=== PATIENT | male | born 1980 | race Caucasian/White ===

== ENCOUNTER 2020-03-29 11:02 | Day surgery (SDC) | payer MEDICAID, SELFPAY ==
[2020-03-22 10:21] VITALS: BMI 34.9
--- NOTE | 2020-03-22 13:17 | HO.ANESPROP2 ---
HPI - Anesthesia Eval Consult details Narrative: 40yo M for EGD [facility] Past Medical History Medical History Back pain GERD (gastroesophageal reflux disease) History of hepatitis B Hx of chronic sinusitis Snores Surgical History Surgical History History of repair of cleft lip Social History Social History Smoking Status: Former smoker Meds Allergies Allergy/AdvReac Type Severity Reaction Status Date / Time aspirin Allergy Unknown Unknown Verified 03/22/20 10:15 Home Medications Medication Instructions Recorded Confirmed Type cyclobenzaprine 10 mg PO TID PRN 03/22/20 03/22/20 History fluticasone propionate [Flonase] 1 spray INTRANASAL DAILY 03/22/20 03/22/20 History meloxicam 7.5 mg PO DAILY 03/22/20 03/22/20 History omeprazole 20 mg PO DAILY 03/22/20 03/22/20 History Exam Exam Date and Time: March 22, 2020 1317 Height,Weight and Vital Signs: Height 5 ft 8 in Weight 104.326 kg Assessment and Plan Assessment Anesthesia Assessment: Chart Reviewed
--- NOTE | 2020-03-29 10:19 | P.HPSUR_ITS ---
Pre-Procedural Eval Section B Chief Complaint: Screening,Gerd Relevant Social History: Tobacco Use Present Medications: see Short Stay Collaborative assessment Medical History: Significant History (gerd) History of Previous Operations: Relevant previous surgery/procedure and date(s) (cleft lip repair) Allergies: Allergies Allergy/AdvReac Type Severity Reaction Status Date / Time aspirin Allergy Unknown Unknown Verified 03/22/20 10:15 Review of Systems Sugical H&P ROS: Negative: Constitution, Cardiovascular, Respiratory, Neurological, Psychiatric, Hem-Onc, Allergic/Immunologic, Gastrointestinal, Genitourinary, Musculoskeletal, Integumentary, Endocrine and Eyes/Ears/Nose/Throat Exam Surgical H&P Exam: Normal: HEENT, Normal: Heart, Normal: Lungs, Normal: Extr emities, Normal: Abdomen, Normal: Skin and Normal: Neurological Plan Diagnosis/Plan: Unchanged Patient has been examined and remains a candidate for the planned procedure
[2020-03-29 11:07] VITALS: BP 132/74; PULSE 90; RESP 16; TEMP 36.1; O2SAT 99
--- NOTE | 2020-03-29 11:30 | HO.ANESPROP2 ---
[facility] Past Medical History Medical History Back pain GERD (gastroesophageal reflux disease) History of hepatitis B Hx of chronic sinusitis Snores Surgical History Surgical History History of repair of cleft lip Social History Social History Smoking Status: Former smoker Smoking Quit Date: 1 yr ago Advance Directives: No Advance Directives Information Provided: Yes Meds Allergies Allergy/AdvReac Type Severity Reaction Status Date / Time aspirin Allergy Unknown Unknown Verified 03/22/20 10:15 Home Medications Medication Instructions Recorded Confirmed Type cyclobenzaprine 10 mg PO TID PRN 03/22/20 03/22/20 History fluticasone propionate [Flonase] 1 spray INTRANASAL DAILY 03/22/20 03/22/20 History meloxicam 7.5 mg PO DAILY 03/22/20 03/22/20 History omeprazole 20 mg PO DAILY 03/22/20 03/22/20 History Exam Exam Date and Time: March 29, 2020 1130 Height,Weight and Vital Signs: Height 5 ft 8 in Weight 104.326 kg Last Vital Signs Temp 97 F 03/29/20 11:07 Pulse 90 03/29/20 11:07 Resp 16 03/29/20 11:07 BP 132/74 03/29/20 11:07 Pulse Ox 99 03/29/20 11:07 Airway Mallampati Class: IV TM Dist: >3cm Neck ROM: Full Loose/Missing/Broken Teeth: Yes Heart: RRR Assessment and Plan Assessment Anesthesia Assessment: Anesthesia Plan Discussed Final Anesthetic Review NPO: Yes Final Preanesthetic Review: Consent Obtained/Reviewed Anesthetic Plan Anesthetic Plan: MAC:
--- NOTE | 2020-03-29 11:40 | PM.OP ---
Brief Operative Note Date of procedure: 03/29/20 Pre-op diagnosis: GERD Post-op diagnosis: same Procedure: Procedure Description: EGD FLEXIBLE TRANSORAL UPPER GASTROINTESTINAL ENDOSCOPY UPPER ENDOSCOPY Consent: Indications for the procedure and potential complications of bleeding, perforation, reaction to medications and missed diagnosis were discussed with the patient and informed consent was obtained. Instrument: Olympus GIF H 190 J mid size upper endoscope Monitoring: Vital signs and clinical assessment, continuous EKG monitoring, Pulse oximetry, Carbon Dioxide monitoring and blood pressure monitoring were done throughout the procedure. Procedure: The patient was placed in the left lateral decubitis position and pre-procedure medications were administered and a bite block was placed. The endoscope was inserted into the mouth and advanced under direct vision to the third part of duodenum. A careful inspection was made as the upper endoscope was withdrawn including a retroflexed examination of the proximal stomach; Findings and interventions are described below. Findings: Larynx:normal Esophagus: GE junction at 38 cm, diaphragm hiatus at 40 cm, LA grade C erosive esophagitis with non obstructive schatzki ring. 2 cm sliding hiatal hernia noted Stomach: Patchy gastric erythema. Biopsies were obtained. Grade 2 flap valve on retroflexed examination of the cardia. Duodenum: bulbar duodenitis, bx taken Intervention: Biopsies as noted above Impression/Findings: erosive esophagitis gastritis schatzki ring duodenitis hiatal hernia PLAN: reflux precautions make sure compliant with medication, if h pylori pos then treat treat with high dose PPI and can titrate down after repeat EGD in 3-6 months Surgeon: Fuad Worley MD Anesthesia: MAC Condition: stable Disposition: PACU
[2020-03-29 11:57] VITALS: BP 145/84; PULSE 90; RESP 18; TEMP 37.1; O2SAT 98
[2020-03-29] MEDS: ondansetron HCL 4 MG/2 ML VIAL IVPUSH (12:05)
[2020-03-29 12:13] VITALS: BP 131/85; PULSE 79; RESP 14; O2SAT 97
[2020-03-29 12:28] VITALS: BP 131/81; PULSE 78; RESP 14; TEMP 37.1; O2SAT 97
[2020-03-29 12:44] VITALS: BP 138/86; PULSE 80; RESP 12; TEMP 37.1; O2SAT 98
--- NOTE | 2020-03-29 13:38 | HO.POSTANES ---
Post Anesthesia Evaluation Post Anesthesia Evaluation Vital Signs: Vital Signs Temp Pulse Resp BP Pulse Ox 03/29/20 12:44 98.7 F 80 12 138/86 98 03/29/20 12:28 98.7 F 78 14 131/81 97 03/29/20 12:13 79 14 131/85 97 03/29/20 11:57 98.7 F 90 18 145/84 H 98 03/29/20 11:07 97 F 90 16 132/74 99 Anesthesia: Monitored Mental Status: Awake Pain Control: Satisfactory Nausea/Vomiting: None Hydration: Adequate Anesthesia-Related Issues: No Anes. Related Issues
== END 2020-03-29 13:40 | disposition home or self-care (01) ==
PROVIDERS: PCP Family Medicine; Visit Provider Internal Medicine Gastroenterology
PROC: 0DJ08ZZ Inspection of Upper Intestinal Tract, Via Natural or Artificial Opening Endoscopic (ICD-10-PCS; CPT 43235; principal; 2020-03-29 11:00)
DX: K21.00 Gastro-esophageal reflux disease with esophagitis, without bleeding (principal); K29.50 Unspecified chronic gastritis without bleeding; K22.10 Ulcer of esophagus without bleeding; K44.9 Diaphragmatic hernia without obstruction or gangrene; K22.2 Esophageal obstruction; K29.80 Duodenitis without bleeding; Z79.899 Other long term (current) drug therapy; Z88.8 Allergy status to other drugs, medicaments and biological substances
CPT/HCPCS: 43239; 88305; 88342; J2405

== ENCOUNTER → 2020-06-07 11:11 | Outpatient (BNVA) | payer MEDICAID, SELFPAY | PROVIDERS: PCP Family Medicine; Visit Provider Orthopaedic Surgery | DX: M77.12 Lateral epicondylitis, left elbow (principal); M25.512 Pain in left shoulder | CPT/HCPCS: 20551; 99202; J1100 ==

== ENCOUNTER 2020-07-04 14:58 | Outpatient (REF) | payer MEDICAID, SELFPAY | END 2020-07-04 14:59 | disposition home or self-care (01) | LOC: HO.HOSX 14:58 | PROVIDERS: Visit Provider Orthopaedic Surgery | DX: Z13.89 Encounter for screening for other disorder (principal) ==

== ENCOUNTER 2020-12-28 13:59 | Outpatient (REF) | payer SELFPAY ==
--- NOTE | ~2020-12-28 | US_ITS ---
EXAMINATION: ULTRASOUND EXTREMITY NONVASCULAR CLINICAL INFORMATION: Left upper thigh pain COMPARISON: None TECHNIQUE: Grayscale and color imaging of the soft tissues of the left lateral upper thigh using a linear transducer. FINDINGS: No soft tissue mass is seen. No fluid collection is seen. US/US extremity nonvascular IMPRESSION: No abnormality seen by ultrasound.
== END 2020-12-28 14:00 | disposition home or self-care (01) ==
LOC: HO.US 13:59
PROVIDERS: PCP Internal Medicine; Referring Provider Internal Medicine; Visit Provider Emergency Medicine
DX: M79.652 Pain in left thigh (principal); S76.312A Strain of muscle, fascia and tendon of the posterior muscle group at thigh level, left thigh, initial encounter
CPT/HCPCS: 76882

== ENCOUNTER → 2025-02-07 14:57 | Outpatient (BNV) | payer OTHER, SELFPAY | PROVIDERS: Visit Provider Radiology Diagnostic Radiology | DX: N20.0 Calculus of kidney (principal); M54.50 Low back pain, unspecified | CPT/HCPCS: 72100; 74176 ==

== ENCOUNTER 2025-02-07 15:09 | Emergency (ER) | payer OTHER, SELFPAY ==
--- OUTSIDE RECORDS SUMMARY | 2025-02-02 19:00 | XMS_ITS | Encounter Summary ---
Author Organization [employer] Address [address] [place] [address] Care Team Providers Care Thermoforming Operator Name Role Phone Alma Simon MD Primary Care Provider + Reason for Visit * Reason Comments Back Pain Encounter Details Date Type Department Care Team ([facility] st Contact Info) Description 02/02/2025 7:00 PM EDT Office Visit [facility] [address], [place] [id number] Marlyn Kurtz NP [address] [place] [address] Acute bilateral low back pain, unspecified whether sciatica present (Primary Dx); Pain in testicle, unspecified laterality; Elevated blood pressure reading Social History Tobacco Use Types Packs/Day Years Used Date Smoking Tobacco: Never Assessed Sex and Gender Information Value Date Recorded Sex Assigned at Male 04/15/2022 10:30 AM EDT Legal Sex Male 10:30 AM EDT Gender Identity Male 04/15/2022 10:30 AM EDT Sexual Orientation Straight 04/15/2022 10 :30 AM EDT documented as of this encounter Last Filed Vital Signs Vital Sign Reading Time Taken Comments Blood Pressure 148/85 02/02/2025 6:55 PM EDT Pulse 78 02/02/2025 6:55 PM EDT Temperature 36.6 C (97.8 F) 02/02/2025 6:55 PM EDT Respiratory Rate 20 02/02/2025 6:55 PM EDT Oxygen Saturation - - Inhaled Oxygen Concentration - - Weight 112 kg (247 lb 3.2 oz) 02/02/2025 6:55 PM EDT Height 179.4 cm (5' 10.63 ) 02/02/2025 6:55 PM E DT Body Mass Index 34.84 02/02/2025 6:55 PM EDT documented in this encounter Progress Notes * Marlyn Kurtz NP - 02/02/2025 7:00 PM EDT SUBJECTIVE: Mohinder Pereira is a 44 y.o. male who presents to the [facility] [place] for a sick visit. Denies recent illness, injury, or hospitalization. Accompanied by his HPI - Lower back pain since Friday, with swelling on the right side and pain radiating to the front anddown his legs - Pain severity rated 6-7/10 at the moment, but 10/10 at its worse - Heating pad and bengay rub provides some relief. Also tried naproxen 1g that did not help - Pain worsened by movement, twisting, bending, and getting into bed - Occasional numbness or tingling in genital area, present before and since Friday -Reports sustaining a fall 2 years ago which resulted in separation of bone in his right lumbar area -No recent trauma -Had intermittent testicular pain at baseline, but note genital paresthesia since onset of low backpain -Urine has been orange since Friday Review of Systems Constitutional: Negative. Negative for chills and fever. HENT: Negative. Negative for congestion and sore throat. Eyes: Negative for discharge. Respiratory: Negative for cough, chest tightness and shortness of breath. Cardiovascular: Negative for chest pain and palpitations. Gastrointestinal: Negative. Negative for abdominal pain, constipation, diarrhea and nausea. Genitourinary: Positive for testicular pain. Negative for difficulty urinating. Discolored urine Musculoskeletal: Positive for back pain. Negative for myalgias. Skin: Negative for rash. Neurological: Positive for numbness. Negative for dizziness, speech difficulty, light-headedness and headaches. Hematological: Negative. Psychiatric/Behavioral: Negative for behavioral problems, self-injury and suicidal ideas. The patient is not nervous/anxious. OBJECTIVE: Visit Vitals BP (!) 148/85 (BP Location: Left arm, Patient Position: Sitting, BP Cuff Size: Adult) Pulse 78 Temp 97.8 ??F (36.6 ??C) (Oral) Resp 20 Ht 5' 10.63 (1.794 m) Wt 247 lb 3.2 oz (112 kg) BMI 34.84 kg/m?? BSA 2.36 m?? Problem List[1] Physical Exam Vitals reviewed. Constitutional: General: He is not in acute distress. Appearance: Normal appearance. He is not ill-appearing. HENT: Head: Normocephalic and atraumatic. Right Ear: External ear normal. Left Ear: External ear normal. Nose: Nose normal. Eyes: General: No scleral icterus. Extraocular Movements: Extraocular movements intact. Pulmonary: Effort: Pulmonary effort is normal. No respiratory distress. Musculoskeletal: General: Normal range of motion. Cervical back: Normal range of motion. Neurological: General: No focal deficit present. Mental Status: He is alert and oriented to person, place, and time. Gait: Gait normal. Psychiatric: Mood and Affect: Mood normal. Behavior: Behavior normal. Assessment/Plan Diagnoses and all orders for this visit: Acute bilateral low back pain, unspecified whether sciatica present Comments: Lower back pain with right-sided swelling and radiation to the front, orange urine, numbness and tingling in genital area: - Possible nerve compression with associated urinary changes; concern for cauda equina medical emergency requiring immediate evaluation. - Recommended immediate transfer to emergency department for further evaluation and management. Patient opt to arrive via private car -Hospital to expect call to [facility] by Janelle DA SILVA Pain in testicle, unspecified laterality Comments: -patient reports intermittent and chronic -not discussed given emergent nature of back pain presentation Elevated blood pressure reading Comments: -likley due to acute pain -not discussed due to acute emergent presentation of back pain -has upcoming PE with PCP Follow-up with PCP as scheduled for routine health or sooner as needed Libyan Translation: Provided by [facility] staff member SARAH Bello Patient verbally consented audio recording for note generation using Chiquita merino. [1] Patient Active Problem List Diagnosis Chronic low back pain Chronic sinusitis Deviated nasal septum Duodenitis Gastritis Obesity PVCs (premature ventricular contractions) Snoring documented in this encounter Plan of Treatment Upcoming Encounters Date Type Department Care Team (Late st Contact Info) Description 03/18/2025 10:45 AM EDT Office Visit [facility] [address] [place] [address] Alma Simon MD [address] [place] [address] documented as of this encounter Visit Diagnoses Diagnosis Acute bilateral low back pain, unspecified whether sciatica present- Primary Pain in testicle, unspecified laterality Elevated blood pressure reading Elevated blood pressure reading without diagnosis of hypertension documented in this encounter Care Teams Thermoforming Operator Relationship Specialty Start Date End Date Alma Simon MD [address] [place] [address] PCP - General Family Medicine 06/30/20 documented as of this encounter
--- NOTE | ~2025-02-07 | XR_ITS ---
EXAMINATION: XR LUMBOSACRAL SPINE CLINICAL INFORMATION: lower back pain COMPARISON: None available. TECHNIQUE: Three views of the lumbosacral spine. FINDINGS: No scoliosis. Normal lordosis. Normal alignment. No fracture, compression deformity, or suspicious bone lesion. Facets are normally aligned. No significant facet arthrosis. Normal disc spaces. Subtle sclerosis noted in the periarticular SI joints right greater than left, possibly representing sacroiliitis. There is no soft tissue abnormality. XR/XR lumbar spine 2-3V IMPRESSION: 1. No acute findings of the lumbar spine. 2. Findings which could potentially represent inflammatory sacroiliitis. Electronically signed by: Scooter Sellers MD 02/07/2025 04:02 PM EDT
--- NOTE | ~2025-02-07 | CT_ITS ---
CLINICAL HISTORY: pain, ureteral stone? CT abdomen and pelvis without IV contrast. COMPARISON: None provided. FINDINGS: Partially visualized lung bases are unremarkable. Gallbladder is contracted. Hepatic steatosis. Noncontrast appearance of the spleen, pancreas and adrenal glands are unremarkable. Nonobstructing 3 mm right renal calculus. No hydronephrosis bilaterally. No ureteral calculus. Normal appendix. Mild colonic stool burden. No bowel obstruction. No mesenteric or retroperitoneal lymphadenopathy. Normal abdominal aorta. Mild thickening of the mucosa of the contracted urinary bladder. Prostate calcification present. No inguinal lymphadenopathy. Small fat containing umbilical hernia. No acute fracture or suspicious bone lesion. IMPRESSION: 1. No evidence of renal obstruction. No ureteral calculus bilaterally. 2. Nonobstructing 3 mm right renal calculus. 3. Mild thickening of the mucosa of the contracted urinary bladder may be secondary to degree of contraction or represent cystitis. Recommend correlation clinically. This document has been electronically signed by: Aman Espino MD on 02/07/2025 19:37:40
[2025-02-07 15:16] VITALS: BP 143/73; PULSE 85; RESP 18; TEMP 36.5; O2SAT 98; BMI 39.1
--- NOTE | 2025-02-07 15:51 | ED.GENADULT ---
HPI - General Adult General Chief complaint: Back Pain/Injury Stated complaint: lower back pain Time Seen by Provider: 02/07/25 18:26 Source: patient Limitations: language barrier History of Present Illness ED Provider: Flora Mcnally PA-C HPI narrative: 44-year-old male presents with multiple complaints. Patient states over the past 2 days he has developed right lower back pain. The pain migrates across the right flank into the groin region into the testicles at time and down the right lower extremity. Initially the patient had dysuria, complaining of dark colored urine. However his urinary symptoms have resolved. Denies nausea vomiting or history of kidney stones no fevers. Denies paresthesia, weakness of lower extremity, urinary retention or bowel incontinence. Denies testicular pain or swelling. No redness of the testicles, no penile discharge no risk for STD. Related Data Home Medications ?Medication ?Instructions ?Recorded ?Confirmed cyclobenzaprine 10 mg tablet 10 mg PO TID PRN Pain 03/22/20 03/22/20 fluticasone propionate 50 1 spray intranasal DAILY 03/22/20 03/22/20 mcg/actuation nasal spray,suspension meloxicam 7.5 mg tablet 7.5 mg PO DAILY 03/22/20 03/22/20 omeprazole 20 mg capsule,delayed 20 mg PO DAILY 03/22/20 03/22/20 release Previous Rx's ?Medication ?Instructions ?Recorded pantoprazole 40 mg tablet,delayed 40 mg PO BID 30 days #60 tabs 03/29/20 release sucralfate 100 mg/mL oral 10 ml PO BID #420 mL 05/26/20 suspension ketorolac 10 mg tablet 10 mg PO Q6H PRN pain #20 tabs 02/07/25 methocarbamol 750 mg tablet 1,500 mg (2 x 750 mg) PO Q8H PRN 02/07/25 pain, moderate #24 tabs methylprednisolone 4 mg tablets in 4 mg PO QAM #21 ea 02/07/25 a dose pack (Medrol (Gunnar)) Allergies Allergy/AdvReac Type Severity Reaction Status Date / Time No Known Allergies Allergy Verified 02/07/25 15:24 Review of Systems Review of Systems: Yes all other systems are reviewed and are negative Constitutional: Constitutional: Denies fatigue and Denies fever(s) Cardiovascular: Cardiovascular: Denies chest pain and Denies dyspnea Respiratory: Respiratory: Denies dyspnea Gastrointestinal: Gastrointestinal: Denies abdominal pain, Denies nausea and Denies vomiting Genitourinary: Genitourinary: Reports dysuria, Reports flank pain, Denies penile discharge, Denies scrotal swelling and Denies testicular pain Endocrine: Endocrine: Denies fatigue [facility] Past Medical History Attestation statement: The following information was validated with the patient. 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 Physical Exam ED Vital Signs: Vital Signs - 24 hr 02/07/25 15:16 02/07/25 18:21 Temperature 97.7 F 97.2 F Pulse Rate 85 80 Respiratory Rate 18 18 Blood Pressure 143/73 H 142/81 H Pulse Oximetry 98 99 Oxygen Delivery Method Room Air Room Air BMI result Body Mass Index 39.1 Const Other: Alert well-appearing Orientation/consciousness: patient oriented x3 Resp Effort & Inspection: normal respiratory effort Cardio Other: Normal peripheral perfusion General: Yes no CVA tenderness Back/Spine/Pelvis Back: no CVA tenderness Skin Other: Warm dry no rash Neuro General: patient oriented x3, gait normal, no focal motor deficits and CN's II-XI intact bilaterally Psych Other: Cooperative Course Course Course Narrative: Rapid medical examination performed in triage by Nelia Garcia PA-C. Patient is a 44 year old assigned male at presenting to the emergency department with right sided low back and dark urine. Detailed physical exam and review of systems are deferred to the drainage engineer. Labs ordered. Patient placed back in the waiting room pending room availability and results. Medications Administered Discontinued Medications Generic Name Dose Route Start Last Admin Trade Name Freq PRN Reason Stop Dose Admin Sodium Chloride 1,000 mls @ 999 mls/hr 02/07/25 18:30 02/07/25 19:39 Ns IV 02/07/25 19:30 999 mls/hr .Q1H1M FAZAL Administration Ketorolac Tromethamine 15 mg 02/07/25 18:27 02/07/25 19:38 Ketorolac Tromethamine 15 Mg/Ml Vial IVPUSH 02/07/25 18:28 15 mg ONCE ONE Administration Methocarbamol 1,500 mg 02/07/25 19:23 02/07/25 19:39 Methocarbamol 750 Mg Tablet PO 02/07/25 19:24 1,500 mg ONCE ONE Administration Prednisone 10 mg 02/07/25 19:23 02/07/25 19:39 Prednisone 10 Mg Tablet PO 02/07/25 19:24 10 mg ONCE ONE Administration Medical Decision Making Medical Decision Making [facility] Narrative: 44-year-old male presents with multiple complaints. Patient states over the past 2 days he has developed right lower back pain. The pain migrates across the right flank into the groin region into the testicles at time and down the right lower extremity. Initially the patient had dysuria, complaining of dark colored urine. However his urinary symptoms have resolved. Denies nausea vomiting or history of kidney stones no fevers. Denies paresthesia, weakness of lower extremity, urinary retention or bowel incontinence. Denies testicular pain or swelling. No redness of the testicles, no penile discharge no risk for STD. Problem: Obesity History: Per patient I have considered the following differential diagnoses: Lumbar strain, lumbar radiculopathy, cauda equina, renal colic, pyelonephritis, UTI, torsion, orchitis/epididymitis, urethritis Plan: In regard to the patient's back pain, he is having radicular symptoms without red flag signs symptoms concerning for cord compression. In addition to screening labs and a urinalysis, x-ray of the lumbar spine was obtained it is unremarkable. We will treat accordingly. In regard to patient's urinary symptoms, I am concerned for renal colic, we will be obtaining a dry scan. Giving fluid and Toradol. Thought about pyelonephritis, however the patient has no CVA tenderness, he is afebrile without nausea vomiting. He has no testicular swelling or pain to suggest torsion versus infectious etiology such as orchitis or epididymitis. He has no risk for STD and no penile discharge. And his urine is clear. No indication for scrotal ultrasound. I have independently reviewed the following tests: Labs: No leukocytosis, not anemic, no electrolyte abnormality, urine not infected X-ray lumbar spine: XR/XR lumbar spine 2-3V IMPRESSION: 1. No acute findings of the lumbar spine. 2. Findings which could potentially represent inflammatory sacroiliitis. CT abdomen and pelvis:MPRESSION: 1. No evidence of renal obstruction. No ureteral calculus bilaterally. 2. Nonobstructing 3 mm right renal calculus. 3. Mild thickening of the mucosa of the contracted urinary bladder may be secondary to degree of contraction or represent cystitis. Recommend correlation clinically. Lab Data 02/07/25 16:39 02/07/25 16:39 Labs: Lab Results 02/07/25 02/07/25 Range/Units 16:39 18:43 WBC 5.5 (4.8-10.8) X10*3/uL RBC 5.13 (4.60-5.80) X10*6/uL Hgb 15.2 (14.0-18.0) g/dl Hct 43.6 (42.0-52.0) % MCV 85.0 (80.0-98.0) fL MCH 29.6 (27.0-33.0) pg MCHC 34.9 (31.0-36.0) g/dl RDW 13.2 (11.0-16.0) % Plt Count 197 (160-400) X10*3/uL MPV 8.7 L (9.4-12.4) fL Immature Gran % (Auto) 0.4 (0.0-0.4) % Neut % (Auto) 63.7 (45-73) % Lymph % (Auto) 20.8 (20-40) % Powell % (Auto) 12.7 H (2-11) % Eos % (Auto) 2.0 (0-4) % Baso % (Auto) 0.4 (0-2) % Lymph # (Auto) 1.2 (1.2-4.9) X10*3/uL Powell # (Auto) 0.7 (0.1-1.2) X10*3/uL Eos # (Auto) 0.1 (0.0-0.4) X10*3/uL Baso # (Auto) 0.0 (0.0-0.2) X10*3/uL Abs Immat Gran (auto) 0.02 (0.00-0.03) X10*3/uL Absolute Neuts (auto) 3.5 (2.0-8.3) x10*3/uL Absolute Nucleated RBC 0.000 (0.0-0.012) X10*3/uL Nucleated RBC % (auto) 0.0 (0.0-0.2) /100WBC Sodium 141 (135-145) mmol/L Potassium 3.7 (3.3-5.1) mmol/L Chloride 106 (96-108) mmol/L Carbon Dioxide 29 (22-29) mmol/L Anion Gap 10 L (12-20) BUN 14 (9-16) mg/dL Creatinine 0.75 (0.5-1.4) mg/dL Estim Creat Clear Calc 147.6 Estimated GFR > 60 Random Glucose 108 (60-115) mg/dL Calcium 9.1 (8.4-10.2) mg/dL Total Bilirubin 0.4 (0.0-1.0) mg/dL AST 31 (5-37) U/L ALT 44 H (0-40) U/L Alkaline Phosphatase 58 (39-117) U/L Total Protein 7.0 (6.5-8.0) g/dL Albumin 4.2 (3.5-5.0) g/dL Urine Color Yellow Urine Appearance Clear Urine pH 6.5 (5.0-9.0) Ur Specific [place] >= 1.030 H (1.005-1.025) Urine Protein Negative (Neg-Trace) mg/dL Urine Glucose (UA) Negative (Negative) mg/dL Urine Ketones Trace (Negative) mg/dL Urine Blood Negative (Negative) Urine Nitrite Negative (Negative) Ur Leukocyte Esterase Negative (Negative) Discharge Plan Discharge Clinical Impression: Right lumbar radiculopathy, Sacroiliitis Patient Disposition: Home, Self-Care Instructions: Sciatica (ED), Sacroiliitis (ED) Additional Instructions: You are being treated for both sacroiliitis and sciatica. See home care instructions. You have two inflammatory processes going on at the same time. They are both managed the same. Take the steroid taper as directed this is an anti-inflammatory. Take the ketorolac as directed this is a 2nd anti-inflammatory. Use the methocarbamol as needed for further pain this is a muscle relaxant. This medication will cause drowsiness do not drive or operate machinery while taking the medication. To note you had no lab abnormalities including your urine specimen which was negative for infection. Your urine may have been dark in color if you do not drink enough water. Follow up with your primary care as needed. Prescriptions: New ketorolac 10 mg tablet 10 mg PO Q6H PRN (Reason: pain) Qty: 20 0RF Rx Instructions: maximum total duration of 5 days from all oral, intranasal, or parenteral formulations. The patient received an IV dose of Toradol here in the emergency room methocarbamol 750 mg tablet 1,500 mg PO Q8H PRN (Reason: pain, moderate) Qty: 24 0RF methylprednisolone [Medrol (Gunnar)] 4 mg tablets,dose pack 4 mg PO QAM Qty: 21 0RF Rx Instructions: Take per package instructions No Action sucralfate 100 mg/mL suspension 10 ml PO BID Qty: 420 2RF cyclobenzaprine 10 mg Tablet 10 mg PO TID PRN (Reason: Pain) meloxicam 7.5 mg Tablet 7.5 mg PO DAILY omeprazole 20 mg Capsule,Delayed Release(Dr/Ec) 20 mg PO DAILY fluticasone propionate [Flonase] 50 mcg/actuation Bowman,Suspension 1 spray INTRANASAL DAILY pantoprazole 40 mg tablet,delayed release (DR/EC) 40 mg PO BID 30 Days Qty: 60 3RF Rx Instructions: stop omeprazole Stand Alone Forms: Work/School Release Print Language: Hungarian
[2025-02-07 16:43] LABS: MANUAL DIFF FLAG NO
[2025-02-07 16:47] LABS: Hematocrit 43.6 % (42.0-52.0); Hemoglobin 15.2 g/dl (14.0-18.0); Imm Gran Abs Auto 0.02 X10*3/uL (0.00-0.03); Imm Gran Pct Auto 0.4 % (0.0-0.4); Lymphocytes Absolute Auto 1.2 X10*3/uL (1.2-4.9); Mean Corpuscular HGB Conc 34.9 g/dl (31.0-36.0); Mean Corpuscular Hemoglobin 29.6 pg (27.0-33.0); Mean Corpuscular Volume 85.0 fL (80.0-98.0); NRBC Abs Auto 0.000 X10*3/uL (0.0-0.012); NRBC Pct Auto 0.0 /100WBC (0.0-0.2); Platelet Count 197 X10*3/uL (160-400); Red Blood Count 5.13 X10*6/uL (4.60-5.80); White Blood Count 5.5 X10*3/uL (4.8-10.8)
[2025-02-07 17:01] LABS: Alanine Aminotransferase 44 U/L (0-40); Albumin Level 4.2 g/dL (3.5-5.0); Alkaline Phosphatase 58 U/L (39-117); Anion Gap 10 (12-20); Aspartate Amino Transferase 31 U/L (5-37); Blood Urea Nitrogen 14 mg/dL (9-16); Calcium 9.1 mg/dL (8.4-10.2); Carbon Dioxide 29 mmol/L (22-29); Chloride 106 mmol/L (96-108); Creatinine Clr Calc Pharmacy 147.6; Estimated Glomerular Filt Rate > 60; Potassium 3.7 mmol/L (3.3-5.1); Sodium 141 mmol/L (135-145); Total Protein 7.0 g/dL (6.5-8.0)
[2025-02-07 18:21] VITALS: BP 142/81; PULSE 80; RESP 18; TEMP 36.2; O2SAT 99
--- OUTSIDE RECORDS SUMMARY | 2025-02-07 18:27 | XMS_ITS | Encounter Summary ---
Author Organization [employer] [facility] Address [address] [place] [address] 7 [place] [address] Care Team Providers Care Reference Assistant Name Role Phone Alma Simon MD Primary Care Provider + Encounter Details Date Type Department Care Team (Latest Contact Info) Description 02/02/2025 Travel Social History Tobacco Use Types Packs/Day Years Used Date Smoking Tobacco: Never Assessed Sex and Gender Information Value Date Recorded Sex Assigned at Male 04/15/2022 10:30 AM EDT Legal Sex Male 10:30 AM EDT Gender Identity Male 04/15/2022 10:30 AM EDT Sexual Orientation Straight 04/15/2022 10 :30 AM EDT documented as of this encounter Plan of Treatment Upcoming Encounters Date Type Department Care Team (Late st Contact Info) Description 03/18/2025 10:45 AM EDT Office Visit [facility] [address] [place] [address] Alma Simon MD [address] [place] [address] documented as of this encounter Visit Diagnoses Not on filedocumented in this encounter Care Teams Reference Assistant Relationship Specialty Start Date End Date Alma Simon MD [address] [place], [place] [phone] PCP - General Family Medicine 06/30/20 documented as of this encounter
--- OUTSIDE RECORDS SUMMARY | 2025-02-07 18:27 | XMS_ITS | Encounter Summary ---
Author Organization [employer] [facility] Address [address] [place] [address] 7 [place] [address] Care Team Providers Care Clinical Nursing Instructor Name Role Phone Alma Simon MD Primary Care Provider + Reason for Visit * Reason Onset Date Comments Nurse Triage 02/02/2025 Encounter Details Date Type Department Care Team ([facility] st Contact Info) Description 02/02/2025 Telephone [facility] [address] [place], [place] [phone] Alma Simon MD [address] [place], [place] [phone] Nurse Triage Social History Tobacco Use Types Packs/Day Years Used Date Smoking Tobacco: Never Assessed Sex and Gender Information Value Date Recorded Sex Assigned at Male 04/15/2022 10:30 AM EDT Legal Sex Male 10:30 AM EDT Gender Identity Male 04/15/2022 10:30 AM EDT Sexual Orientation Straight 04/15/2022 10 :30 AM EDT documented as of this encounter Miscellaneous Notes * Telephone Encounter - Iram uBi LPN - 02/02/2025 12:10 PM EDT [employer] used as BLS unable to connect with third democrat. [employer] Tay #[id number]. Patient with severe back since last Friday. No new accident or injury noted reports that at work at times has strenuous activity. Is currently taking Naproxen with minimal relief. Has pain right lower back radiating to knee. No loss of bowel or bladder. No numbness of foot. Remains ambulatory. Patient not seen for some time and advised of status. Does have PCP PE previously scheduled for 03/18/25 and patient and aware. Disposition reviewed and patient in agreement withplan. No PCP or Team appts available at time of call. Will come to [facility] today. . [facility] In [facility] hours and availability provided for patient evaluation. Triage nurse informed the patient may have a wait of 1-2 hours because Walk In Clinic may have delays due to patient volume or symptom acuity. Insurance verified as active. Protocol Used: Back Pain (Adult) Protocol-Based Disposition: See in Office or Video Visit within 3 Days Video visit not offered Positive Triage Questions: * Moderate back pain (e.g., interferes with normal activities) and present > 3 days * Pain radiates into the thigh or further down the leg * Patient wants to be seen * All higher-acuity triage questions were negative Care Advice Discussed: * Reasons To Call Back - Fever occurs - Numbness or weakness occurs - Loss of control of your bladder or bowel - Pain becomes worse - You become worse * Telephone Encounter - Monique Lynn - 02/02/2025 11:26 AM EDT Symptoms: Back Pain - Not From Injury, Hip Pain - Not From Injury Outcome: Schedule an urgent appointment (within 1 hour) or talk to a nurse or provider soon Reason: Severe pain now The caller accepted this outcome. Pt last seen with PCP 03/01/2022 Contact pt at [phone] (icelandic) documented in this encounter Plan of Treatment Upcoming Encounters Date Type Department Care Team (Late st Contact Info) Description 03/18/2025 10:45 AM EDT Office Visit [facility] [address] [place] [address] Alma Simon MD [address] [place] [address] documented as of this encounter Visit Diagnoses Not on filedocumented in this encounter Care Teams Clinical Nursing Instructor Relationship Specialty Start Date End Date Alma Simon MD [address] [place] [phone] PCP - General Family Medicine 06/30/20 documented as of this encounter
--- OUTSIDE RECORDS SUMMARY | 2025-02-07 18:27 | XMS_ITS | Clinical Summary ---
Author Organization [employer] Address [address] [facility] 7t [place] [address] Care Team Providers Care Premix Concrete Batcher Name Role Phone Alma Simon MD Primary Care Provider + Allergies No known active allergies Medications cyclobenzaprine (Flexeril) 10 MG tablet Take 1 tablet by mouth in the morning and 1 tablet at noon and 1 tablet in the evening. 1 Active esomeprazole (NexIUM) [address] capsule Take 1 capsule by mouth 1 (one) time each day. 2 Active fluticasone (Flonase) 50 MCG/ACT nasal spray Administer 1 spray into affected nostril(s) every 12 (twelve) hours. 8 Active naproxen (Naprosyn) 500 MG tablet take 1 tablet by oral route 2 times every day with food as needed for pain 1 Active Active Problems Problem Noted Date Diagnosed Date Duodenitis 06/07/2022 PVCs (premature ventricular contractions) 2021 Obesity 06/29/2018 Chronic low back pain 05/13/2018 Chronic sinusitis 05/13/2018 Deviated nasal septum 05/13/2018 Gastritis 05/13/2018 Snoring 05/13/2018 Encounters Date Type Department Care Team Description 02/02/2025 7:00 PM EDT Office Visit [facility] [address] [place], [place] [phone] Marlyn Kurtz NP Acute bilateral low back pain, unspecified whether sciatica present (Primary Dx); Pain in testicle, unspecified laterality; Elevated blood pressure reading 02/02/2025 Travel 02/02/2025 Telephone [facility] [address] [place] [address] Alma Simon MD Nurse Triage from Last 3 Months Immunizations Immunization Administration Dates Next Due Influenza injectable quadrivalent preservative f ree 03/01/2022 Pfizer Covid-19 Vaccine 12+ 08/18/2020, Pfizer Covid-19 Vaccine 12+ cristine-sucrose (Rodriguez C ap) 10/29/2021 Social History Tobacco Use Types Packs/Day Years Used Date Smoking Tobacco: Never Assessed Sex and Gender Information Value Date Recorded Sex Assigned at Male 04/15/2022 10:30 AM EDT Legal Sex Male 10:30 AM EDT Gender Identity Male 04/15/2022 10:30 AM EDT Sexual Orientation Straight 04/15/2022 10 :30 AM EDT Last Filed Vital Signs Vital Sign Reading [...] Mass Index 34.84 02/02/2025 6:55 PM EDT Plan of Treatment Upcoming Encounters Date Type Department Care Team (Late st Contact Info) Description 03/18/2025 10:45 AM EDT Office Visit [facility] [address] [place] [address] Alma Simon MD [address] [place] [address] Health Maintenance Due Date Last Done Comments Depression Screening 1981 HIV Screening 1981 SDOH Screening 1981 Disability Screening 1981 Alcohol/Substance Use Screening 1993 Tobacco Screening 1993 Family Planning (PISQ) 02/09/1996 HPV Vaccines (1 - Male 3-dos e series) 02/09/1996 Hepatitis C Screening 1999 DTaP/Tdap/Td Vaccines (1 - Tdap) 02/09/2000 Hepatitis B Vaccines (1 of 3 - 19+ 3-dose series) 02/09/2000 COVID-19 Vaccine (4 - 2023-2 5 season) 2024 10/29/2021, 08/18/2020, 07/28/2020 Influenza Vaccine (#1) 2025 03/01/2022 Lipid Panel 04/12/2027 04/12/2022 Zoster Vaccines (1 of 2) 2031 RSV Patients and Patients Aged 60 years or older (1 - 1-dose 75+ series) 02/09/2056 HIB Vaccines Aged Out No longer eligi ble based on patient's age to complete this topic Hepatitis A Vaccines Aged Out No long er eligible based on patient's age to complete this topic IPV Vaccines Aged Out No longer eligi ble based on patient's age to complete this topic Meningococcal B Vaccine Aged Out No l onger eligible based on patient's age to complete this topic Meningococcal Vaccine Aged Out No teo renard eligible based on patient's age to complete this topic Pneumococcal Vaccine: Pediatrics (0 to 5 Years) and At-Risk Patients (6 to 49) Years Aged Out No longer eligible b ased on patient's age to complete this topic RSV under 20 months Aged Out No longe r eligible based on patient's age to complete this topic Rotavirus Vaccines Aged Out No longer eligible based on patient's age to complete this topic Procedures Procedure Name Priority Date/Time Associated Diagnosis Comments LIPID PANEL, STANDARD Routine 04/12/2022 10:10 AM EDT from Last 3 Months or Most Recently Relevant to Health Maintenance Results * (ABNORMAL) LIPID PANEL, STANDARD (04/12/2022 10:10 AM EDT) Chol/HDLC Ratio 4.0 <5.0 (calc) CONVERTED LEGACY LABS Cholesterol, Total 196 <200 mg/dL CONVERTED [facility]GAC[facility] HDL Cholesterol 49 > OR = 40 mg/dL CONVERTED [facility]GAC[facility] LDL Cholesterol 121(H) mg/dL (calc) CONVERTED [facility]GACY LABS Comment: Reference range: <100 Desirable range <100 mg/dL for primary prevention; <70 mg/dL for patients with CHD or diabetic patients with > or = 2 CHD risk factors. LDL-C is now calculated using the Siomara calculation, which is a validated novel method providing better accuracy than the Friedewald equation in the estimation of LDL-C. Yoan SMITH et al. GRADY. 2013;310(19): 3521-1296 (http://education.SoloLearn.Zaizher.im/faq/AGY111) Non-HDL Cholesterol 147(H) <130 mg/dL (calc) CONVERTED LEGACY LABS Comment: For patients with diabetes plus 1 major ASCVD risk factor, treating to a non-HDL-C goal of <100 mg/dL (LDL-C of <70 mg/dL) is considered a therapeutic option. Triglycerides 150(H) <150 mg/dL CONVE RTED LEGACY LABS 04/12/2022 10:1 0 AM EDT Alma Simon MD LAB BLOOD ORDERABLES Fin al Result CONVERTED LEGACY LABS from Last 3 Months or Most Recently Relevant to Health Maintenance Insurance [facility] 2 Care Teams Premix Concrete Batcher Relationship Specialty Start Date End Date Alma Simon MD [address] [place] [address] [place] [address] PCP - General Family Medicine 06/30/20
--- OUTSIDE RECORDS SUMMARY | 2025-02-07 18:28 | XMS_ITS | Encounter Summary ---
Author Organization [employer] [facility] Address [address] [place] [address] 7 [place] [address] Care Team Providers Care Grout Worker Name Role Phone Alma Simon MD Primary Care Provider + Encounter Details Date Type Department Care Team (Latest Contact Info) Description 08/17/2018 Abstract [facility] CONVERSIONS Dental, Provider, DDS Social History Tobacco Use Types Packs/Day Years [...] Description 03/18/2025 10:45 AM EDT Office Visit [facility] [address] [place] [address] Alma Simon MD [address] [place] [address] documented as of this encounter Visit Diagnoses Not on filedocumented in this encounter Care Teams Grout Worker Relationship Specialty Start Date End Date Alma Simon MD [address] [place] [address] PCP - General Family Medicine 06/30/20 documented as of this encounter
[2025-02-07 18:49] LABS: Appearance Urine Clear; Glucose Urine UA Negative (Negative); PH 6.5 (5.0-9.0); Specific Gravity - Urine >= 1.030 (1.005-1.025)
[2025-02-07 20:50] VITALS: BP 149/87; PULSE 79; RESP 14; TEMP 37.1; O2SAT 98
[2025-02-07 20:54] VITALS: BP 149/87; PULSE 79; RESP 14; TEMP 37.1; O2SAT 98
== END 2025-02-07 20:55 | disposition home or self-care (01) ==
PROVIDERS: Physician Assistant Medical; Emergency Provider Emergency Medicine; PCP Internal Medicine
DX: M54.16 Radiculopathy, lumbar region (principal); M46.1 Sacroiliitis, not elsewhere classified; R30.0 Dysuria; M54.50 Low back pain, unspecified; R10.2 Pelvic and perineal pain; Z79.899 Other long term (current) drug therapy
CPT/HCPCS: 36415; 51701; 72100; 74176; 80053; 81003; 85025; 96361; 96374; 99284; J1885

== ENCOUNTER 2025-03-18 12:04 | Outpatient (REF) | payer OTHER, SELFPAY ==
--- OUTSIDE RECORDS SUMMARY | 2025-03-18 10:45 | XMS_ITS | Encounter Summary ---
Author Organization [employer] Address [address] [place] [address] 7 [place] [address] Care Team Providers Care Office Runner Name Role Phone Alma Simon MD Primary Care Provider + Encounter Details Date Type Department Care Team ([facility] st Contact Info) Description 03/18/2025 10:45 AM EDT Office Visit [facility] [address] [place], [place] [phone] Alma Simon MD [address] [place], [place] [phone] Right renal stone (Primary Dx); PVCs (premature ventricular contractions); Class 2 obesity due to excess calories without serious comorbidity with body mass index (BMI) of 36.0 to 36.9 in adult; Chronic low back pain with bilateral sciatica, unspecified back pain laterality; Screen for STD (sexually transmitted disease); Encounter for immunization Social History Tobacco Use Types Packs/Day Years Used Date Smoking Tobacco: Never Smokeless Tobacco: Never Tobacco Cessation:Counseling Given: Not Answered Alcohol Answer Date Recorded How often do you have a drink containing alcohol ? 1 03/18/2025 Average Number of Drinks Not on file 025 Frequency of Binge Drinking Not on file 08/2024 Depression Answer Date Recorded Patient Health Questionnaire-9 Score 1 03/18/2025 Patient Health Questionnaire-9 Score 1 03/18/2025 Last PHQ-9: Questionnaire Data Not on file 1 Depression Answer Date Recorded Patient Health Questionnaire-2 Score 0 03/18/2025 Sex and Gender Information Value Date Recorded Sex Assigned at Male 04/15/2022 10:30 AM EDT Legal Sex Male 10:30 AM EDT Gender Identity Male 04/15/2022 10:30 AM EDT Sexual Orientation Straight 04/15/2022 10 :30 AM EDT documented as of this encounter Last Filed Vital Signs Vital Sign Reading Time Taken Comments Blood Pressure 122/86 03/18/2025 11:00 AM EDT Pulse 86 03/18/2025 11:00 AM EDT Temperature 36.2 C (97.1 F) 03/18/2025 11:00 AM EDT Respiratory Rate 14 03/18/2025 11:00 AM EDT Oxygen Saturation 98% 03/18/2025 11:00 AM EDT Inhaled Oxygen Concentration - - Weight 112 kg (246 lb 9.6 oz) 03/18/2025 11:00 A M EDT Height 175.3 cm (5' 9 ) 03/18/2025 11:00 AM EDT Body Mass Index 36.42 03/18/2025 11:00 AM EDT documented in this encounter Functional Status * Over the past 2 weeks, how often have you been bothered by any of the following problems? Question Answer Date of Assessment Author Patient Health Questionnaire -2 Score 0 03/18/2025 12:25 PM EDT Evelia Yarbrough MA * Little interest or pleasure in doing things Answer Date of Assessment Author Not at all 03/18/2025 12:25 PM EDT Evelia Yarbrough MA * Feeling down, depressed, or hopeless Answer Date of Assessment Author Not at all 03/18/2025 12:25 PM EDT Evelia Yarbrough MA * Trouble falling or staying asleep, or sleeping too much Answer Date of Assessment Author Not at all 03/18/2025 12:25 PM EDT Evelia Yarbrough MA * Feeling tired or having little energy Answer Date of Assessment Author Several days 03/18/2025 12:25 PM EDT Evelia Yarbrough MA * Poor appetite or overeating Answer Date of Assessment Author Not at all 03/18/2025 12:25 PM EDT Evelia Yarbrough MA * Feeling bad about yourself - or that you are a failure or have let yourself or your family down Answer Date of Assessment Author Not at all 03/18/2025 12:25 PM Evelia Duque MA * Trouble concentrating on things, such as reading the newspaper or watching television Answer Date of Assessment Author Not at all 03/18/2025 12:25 PM EDT Evelia Yarbrough MA * Moving or speaking so slowly that other people could have noticed? Or the opposite - being so fidgety or restless that you have been moving around a lot more than usual. Answer Date of Assessment Author Not at all 03/18/2025 12:25 PM EDEvelia Regan MA * Thoughts that you would be better off or hurting yourself in some way Answer Date of Assessment Author Not at all 03/18/2025 12:25 PM Evelia Duque MA * Patient Health Questionnaire-9 Score Answer Date of Assessment Author 1 03/18/2025 12:25 PM Evelia Duque MA * Over the last 2 weeks, how often have you been bothered by any of the following problems? Question Answer Date of Assessment Author Feeling nervous, anxious, or on edge 0 03/18/2025 12:23 PM EDT Evelia Yarbrough MA Not being able to stop or co ntrol worrying 0 03/18/2025 12:23 PM EDT Evelia Yarbrough MA Worrying too much about diff erent things 0 03/18/2025 12:23 PM EDT Evelia Yarbrough MA Trouble relaxing 0 03/18/2025 12:23 PM EDT Evelia Yarbrough MA Being so restless that it is hard to sit still 0 03/18/2025 12:23 PM EDT Evelia Yarbrough MA Becoming easily annoyed or irritable 0 03/18/2025 12:23 PM EDT Evelia Yrabrough MA Feeling afraid as if somethi ng awful might happen 0 03/18/2025 12:23 PM EDT Evelia Yarbrough MA CLARKE-7 Total Score 0 03/18/2025 12:23 PM EDEvelia Regan MA documented as of this encounter Plan of Treatment Upcoming Encounters Date Type Department Care Team (Late st Contact Info) Description 05/25/2025 11:30 AM EST Office Visit [facility] [address] [place] [address] Alma Simon MD [address] [place] [address] Scheduled Orders Name Type Priority Associated Diagnoses Orde r Schedule Lipid Panel with Reflex to Direct LDL Lab Routine Class 2 obesity due to excess calories without serious comorbidity with body mass index (BMI) of 36.0 to 36.9 in adult Expected: 03/18/2025 (Approximate), Expires: 03/18/2026 TSH with Reflex to Free T4 Lab Routine Class 2 obesity due to excess calories without serious comorbidity with body mass index (BMI) of 36.0 to 36.9 in adult Expected: 03/18/2025 (Approximate), Expires: 03/18/2026 Comprehensive Metabolic Panel Lab Routine Class 2 obesity due to excess calories without serious comorbidity with body mass index (BMI) of 36.0 to 36.9 in adult Expected: 03/18/2025 (Approximate), Expires: 03/18/2026 CBC auto differential Lab Routine Chronic low back pain with bilateral sciatica, unspecified back pain laterality Expected: 03/18/2025 (Approximate), Expires: 03/18/2026 HIV-1/2 Antigen and Antibodies, Fourth Generation, with Reflexes Lab Routine Chronic low back pain with bilateral sciatica, unspecified back pain laterality Screen for STD (sexually transmitted disease) Expected: 03/18/2025 (Approximate), Expires: 03/18/2026 Hepatitis Panel, General Lab Routine Screen for STD (sexually transmitted disease) Expected: 03/18/2025 (Approximate), Expires: 03/18/2026 Syphilis Screen Lab Routine Screen for STD (sexually transmitted disease) Expected: 03/18/2025 (Approximate), Expires: 03/18/2026 documented as of this encounter Visit Diagnoses Diagnosis Right renal stone- Primary PVCs (premature ventricular contractions) Other premature beats Class 2 obesity due to excess calories without serious comorbidity with body mass index (BMI) of 36.0 to 36.9 in adult Chronic low back pain with bilateral sciatica, unspecified back pain laterality Screen for STD (sexually transmitted disease) Screening examination for venereal disease Encounter for immunization documented in this encounter Additional Health Concerns Assessment Noted Time PHQ-9 Depression Total Score: 1 03/18/20 25 12:25 PM EDT documented as of this encounter Care Teams Office Runner Relationship Specialty Start Date End Date Alma Simon MD [address] [place] [id number] PCP - General Family Medicine 06/30/20 documented as of this encounter
--- OUTSIDE RECORDS SUMMARY | 2025-03-18 12:58 | XMS_ITS | Encounter Summary ---
Author Organization [employer] Address [address] [place] [address] Care Team Providers Care Reexaminer Name Role Phone Alma Simon MD Primary Care Provider + Reason for Visit * Reason Onset Date Comments Chart Prep 03/17/2025 Encounter Details Date Type Department Care Team (Late st Contact Info) Description 03/17/2025 Telephone [facility] [address] [place], [place] [phone] Alma Simon MD [address] [place] [address] Chart Prep Social History Tobacco Use Types Packs/Day Years Used Date Smoking Tobacco: Never Assessed Alcohol Answer Date Recorded How often do [...] encounter Miscellaneous Notes * Telephone Encounter - Jaimie Navarro MA - 03/17/2025 10:01 AM EDT Chart Prep Labs: done Images: done Referrals: not applicable Vaccines due: Covid, Flu, Tdap, Hep B, and HPV Screenings: HIV Screening and Hepatitis C Screening Overdue care gaps: SBIRT, SDOH, PHQ-9, CLARKE-7, Oral health screening, and Disability screen documented in this encounter Plan of Treatment Upcoming Encounters Date Type Department Care Team (Late st Contact Info) Description 05/25/2025 11:30 AM EST Office Visit [facility] [address] [place] [phone] Alma Simon MD [address] [place] [phone] documented as of this encounter Visit Diagnoses Not on filedocumented in this encounter Care Teams Reexaminer Relationship Specialty Start Date End Date Alma Simon MD [address] [place] [address] PCP - General Family Medicine 06/30/20 documented as of this encounter
--- OUTSIDE RECORDS SUMMARY | 2025-03-18 12:58 | XMS_ITS | Encounter Summary ---
Author Organization [employer] Address [address] [place] [address] 7 [place] [address] Care Team Providers Care Baby Doctor Name Role Phone Alma Simon MD Primary Care Provider + Encounter Details Date Type Department Care Team (Latest Contact Info) Description 03/18/2025 Travel Social History Tobacco Use Types Packs/Day Years Used Date Smoking Tobacco: Never Smokeless Tobacco: Never Alcohol Answer Date Recorded How often do [...] AM EDT documented as of this encounter Functional Status * Over the [...] PM EDT Evelia Yarbrough MA * Trouble concentrating on things, such [...] 12:25 PM EDT Evelia Yarbrough MA * Thoughts that you would be better off or hurting yourself in some way Answer Date of Assessment Author Not at all 03/18/2025 12:25 PM EDT Evelia Yarbrough MA * Patient Health Questionnaire-9 Score Answer Date of Assessment Author 1 03/18/2025 12:25 PM EDT Evelia Yarbrough MA * Over the last 2 weeks, [...] irritable 0 03/18/2025 12:23 PM EDT Evelia Yarbrough MA Feeling afraid as if somethi ng awful might happen 0 03/18/2025 12:23 PM EDT Evelia Yarbrough MA CLARKE-7 Total Score 0 03/18/2025 12:23 PM EDT Evelia Yarbrough MA documented as of this encounter Plan of Treatment Upcoming Encounters Date Type Department Care Team (Late st Contact Info) Description 05/25/2025 11:30 AM EST Office Visit [facility] [address] [place] [address] Alma Simon MD [address] [place] [address] documented as of this encounter Visit Diagnoses Not on filedocumented in this encounter Additional Health Concerns Assessment Noted Time PHQ-9 Depression Total Score: 1 03/18/20 25 12:25 PM EDT documented as of this encounter Care Teams Baby Doctor Relationship Specialty Start Date End Date Alma Simon MD [address] [place] [phone] PCP - General Family Medicine 06/30/20 documented as of this encounter
--- OUTSIDE RECORDS SUMMARY | 2025-03-18 12:59 | XMS_ITS | Encounter Summary ---
Author Organization [employer] [facility] Address [address] [place] [address] Care Team Providers Care Staff Technologist Name Role Phone Alma Simon MD Primary Care Provider + Encounter Details Date Type Department Care Team (Latest Contact Info) Description 08/17/2018 Abstract [facility] Dental, Provider, DDS Social History Tobacco [...] 11:30 AM EST Office Visit [facility] [address] [place] [address] Alma Simon MD [address] [place] [address] documented as of this encounter Visit Diagnoses Not on filedocumented in this encounter Care Teams Staff Technologist Relationship Specialty Start Date End Date Alma Simon MD [address] [place] [address] PCP - General Family Medicine 06/30/20 documented as of this encounter
--- OUTSIDE RECORDS SUMMARY | 2025-03-18 12:59 | XMS_ITS | Clinical Summary ---
Author Organization [employer] Address [address] [place] [address] 7 [place] [address] Care Team Providers Care Elevator Technician Name Role Phone Alma Simon MD Primary Care Provider + Allergies No known active allergies Medications cyclobenzaprin e (Flexeril) 10 MG tablet Take 1 tablet by mouth in the morning and 1 tablet at noon and 1 tablet in the evening. 1 Active esomeprazole (NexIUM) [address] capsule Take 1 capsule by mouth 1 (one) time each day. 2 Active fluticasone (Flonase) 50 MCG/ACT nasal spray Administer 1 spray into affected nostril(s) every 12 (twelve) hours. 8 Active meloxicam (Mobic) 15 MG tablet Take 1 tablet (15 mg) by mouth Once per day. 30 tablet 5 03/18/20 26 Active naproxen (Naprosyn) 500 MG tablet take 1 tablet by oral route 2 times every day with food as needed for pain 1 03/18/20 25 Discontinu ed(Ineffec tive) Active Problems Problem Noted Date Diagnosed Date Duodenitis 06/07/2022 PVCs (premature ventricular contractions) 2021 Obesity 06/29/2018 Chronic low back pain 05/13/2018 Chronic sinusitis 05/13/2018 Deviated nasal septum 05/13/2018 Gastritis 05/13/2018 Snoring 05/13/2018 Encounters Date Type Department Care Team Description 03/18/2025 10:45 AM EDT Office Visit [facility] [address] [place] [address] Alma Simon MD Right renal stone (Primary Dx); PVCs (premature ventricular contractions); Class 2 obesity due to excess calories without serious comorbidity with body mass index (BMI) of 36.0 to 36.9 in adult; Chronic low back pain with bilateral sciatica, unspecified back pain laterality; Screen for STD (sexually transmitted disease); Encounter for immunization 03/18/2025 Travel 03/17/2025 Telephone [facility] [address] [place] [phone] Alma Simon MD Chart Prep 03/10/2025 Patient Outreach [facility] [address] [place] [address] [phone] Alma Simon MD Pre-visit Planning ((Unable to reach for PVP screening, LVM) to be completed in office ) 02/07/2025 Orders Only GENERIC EXTERNAL DATA DEPARTMENT Provider, Generic External Data 02/02/2025 7:00 PM EDT Office Visit [facility] [address] [place] [phone] Marlyn Kurtz NP Acute bilateral low back pain, unspecified whether sciatica present (Primary Dx); Pain in testicle, unspecified laterality; Elevated blood pressure reading 02/02/2025 Travel 02/02/2025 Telephone [facility] [address] [place] [phone] Alma Simon MD Nurse Triage from Last 3 Months Immunizations Immunization Administration Dates Next Due HepB-CpG 03/18/2025 Influenza injectable quadrivalent preservative f ree 03/01/2022 Influenza, seasonal, injectable, preservative fr ee 03/18/2025 Pfizer Covid-19 Vaccine 12+ 08/18/2020, Pfizer Covid-19 Vaccine 12+ cristine-sucrose (Rodriguez C ap) 10/29/2021 Tdap 03/18/2025 Social History Tobacco Use Types Packs/Day Years [...] Mass Index 36.42 03/18/2025 11:00 AM EDT Plan of Treatment Upcoming Encounters Date Type Department Care Team (Late st Contact Info) Description 05/25/2025 11:30 AM EST Office Visit [facility] [address] [place] [address] Alma Simon MD [address] [place] [address] Health Maintenance Due Date Last Done Comments Depression Screening 1981 HIV Screening 1981 SDOH Screening 1981 Disability Screening 1981 Alcohol/Substance Use Screening 1993 Family Planning (PISQ) 02/09/1996 HPV Vaccines (1 - Male 3-dos e series) 02/09/1996 Hepatitis C Screening 1999 COVID-19 Vaccine (4 - 2 6 season) 2025 10/29/2021, 08/18/2020, 07/28/2020 Hepatitis B Vaccines (2 of 2 - CpG 2-dose series) 04/15/2025 03/18/2025 Tobacco Screening 03/18/2026 03/18/2025 Lipid Panel 04/12/2027 04/12/2022 Zoster Vaccines (1 of 2) 2031 DTaP/Tdap/Td Vaccines (2 - T d or Tdap) 03/18/2035 03/18/2025 RSV Patients and Patients Aged 60 years or older (1 - 1-dose 75+ series) 02/09/2056 Influenza Vaccine Completed 03/18/2025, 03/01/2022 HIB Vaccines Aged Out No longer eligi [...] Procedure Name Priority Date/Time Associated Diagnosis Comments CT ABDOMEN PELVIS WO CONTRAST Routine 02/07/2025 7:37 PM EDT URINALYSIS WITH REFLEX MICROSCOPIC Routine 02/07/2025 6:43 PM EDT LIPID PANEL, STANDARD Routine 04/12/2022 10:10 AM EDT from Last 3 Months or Most Recently Relevant to Health Maintenance Results * CT Abdomen Pelvis w/o Contrast (02/07/2025 7:37 PM EDT) Anatomical Region Laterality Modality Body, Pelvis, Abdomen Computed T omography 02/07/2025 7:37 PM EDT Narrative 02/07/2025 7:39 PM EDT [address] [address] [address] Scan Report Signed Patient: Mohinder Weinstein MR#: [id number] : 1980 Acct:[id number] Age/Sex: 44 / M ADM Date: 02/07/25 Loc: HO.ED Attending Dr: Ordering Physician: Flora Mcnally Date of Service: 02/07/25 Procedure(s): CT abdomen pelvis wo IV con Accession Number(s): [id number] cc: Alma Simon MD; Flora Mcnally Report Number: [id number]: Total DLP = 0.00 mGy-cm CLINICAL HISTORY: pain, ureteral stone? CT abdomen and pelvis without IV contrast. COMPARISON: None provided. FINDINGS: Partially visualized lung bases are unremarkable. Gallbladder is contracted. Hepatic steatosis. Noncontrast appearance of the spleen, pancreas and adrenal glands are unremarkable. Nonobstructing 3 mm right renal calculus. No hydronephrosis bilaterally. No ureteral calculus. Normal appendix. Mild colonic stool burden. No bowel obstruction. No mesenteric or retroperitoneal lymphadenopathy. Normal abdominal aorta. Mild thickening of the mucosa of the contracted urinary bladder. Prostate calcification present. No inguinal lymphadenopathy. Small fat containing umbilical hernia. No acute fracture or suspicious bone lesion. IMPRESSION: 1. No evidence of renal obstruction. No ureteral calculus bilaterally. 2. Nonobstructing 3 mm right renal calculus. 3. Mild thickening of the mucosa of the contracted urinary bladder may be secondary to degree of contraction or represent cystitis. Recommend correlation clinically. This document has been electronically signed by: Aman Espino MD on 02/07/2025 19:37:40 Dictated By: Aman Espino MD Signed By: <Electronically signed by Aman Espino MD in OV> 02/07/251937 DD/ 36 TD/TT: 02/07/251936 Warehouse Unloader: Procedure Note Donotuseinterpreter, Image - [address] [address] [address] Scan Report Signed Patient: Mohinder WeinsteinMR#: [id number] : 1980Acct:[id number] Age/Sex: 44 / MADM Date: 02/07/25 Loc: HO.ED Attending Dr: Ordering Physician: Flora Mcnally Date of Service: 02/07/25 Procedure(s): CT abdomen pelvis wo IV con Accession Number(s): [id number] cc: Alma Simon MD; Flora Mcnally Report Number: [id number]: Total DLP = 0.00 mGy-cm CLINICAL HISTORY: pain, ureteral stone? CT abdomen and pelvis without IV contrast. COMPARISON: None provided. FINDINGS: Partially visualized lung bases are unremarkable. Gallbladder is contracted. Hepatic steatosis. Noncontrast appearance of the spleen, pancreas and adrenal glands are unremarkable. Nonobstructing 3 mm right renal calculus. No hydronephrosis bilaterally. No ureteral calculus. Normal appendix. Mild colonic stool burden. No bowel obstruction. No mesenteric or retroperitoneal lymphadenopathy. Normal abdominal aorta. Mild thickening of the mucosa of the contracted urinary bladder. Prostate calcification present. No inguinal lymphadenopathy. Small fat containing umbilical hernia. No acute fracture or suspicious bone lesion. IMPRESSION: 1. No evidence of renal obstruction. No ureteral calculus bilaterally. 2. Nonobstructing 3 mm right renal calculus. 3. Mild thickening of the mucosa of the contracted urinary bladder may be secondary to degree of contraction or represent cystitis. Recommend correlation clinically. This document has been electronically signed by: Aman Espino MD on 02/07/2025 19:37:40 Dictated By: Aman Espino MD Signed By: <Electronically signed by Aman Espino MD in OV> 02/07/251937 DD/ 36 TD/TT: 02/07/251936 Warehouse Unloader: [facility] External Provider IMG CT PROCEDURES Final Result * (ABNORMAL) Urinalysis w/reflex microscopic (02/07/2025 6:43 PM EDT) Color Urine Yellow [facility] Appearance Urine Clear [facility] PH 6.5 5.0 - 9.0 [facility] Glucose Urine UA Negative Negative mg/dL [facility] Urine Blood Negative Negative [facility] Specific [place] - Urine >=1.030(H) 1.005 - 1.025 [facility] Urine Protein Negative Neg-Trace mg/dL [facility] Urine Ketones Trace Negative mg/dL [facility] Nitrite Urine Negative Negative [facility] Leukocyte Esterase Urine Negative Negative [facility] 02/07/2025 6:43 PM EDT 02/07/2025 6:46 PM EDT Narrative [facility] - 02/07/2025 6:49 PM EDT [id number], Clean Catch us Generic External Data Provider LAB URINE ORDERAB LES Final Result [facility] [address] [place] [address] [phone] * (ABNORMAL) LIPID PANEL, STANDARD (04/12/2022 10:10 [...] factors. LDL-C is now calculated using the Yoan-Marley calculation, which is a validated novel method providing better accuracy than the Friedewald equation in the estimation of LDL-C. Yoan SS et al. GRADY. 2013;310(19): 5384-5894 (http://education.[employer].Maintenance Assistant/faq/EJU951) Non-HDL Cholesterol 147(H) <130 mg/dL (calc) CONVERTED [...] Most Recently Relevant to Health Maintenance Insurance [facility] FnboxIDIntellio 2 Care Teams Elevator Technician Relationship Specialty Start Date End Date Alma Simon MD [address] [place] [phone] PCP - General Family Medicine 06/30/20
[2025-03-18 13:28] LABS: MANUAL DIFF FLAG NO
[2025-03-18 13:42] LABS: Hematocrit 45.2 % (42.0-52.0); Hemoglobin 15.6 g/dl (14.0-18.0); Imm Gran Abs Auto 0.02 X10*3/uL (0.00-0.03); Imm Gran Pct Auto 0.3 % (0.0-0.4); Lymphocytes Absolute Auto 1.3 X10*3/uL (1.2-4.9); Mean Corpuscular HGB Conc 34.5 g/dl (31.0-36.0); Mean Corpuscular Hemoglobin 29.3 pg (27.0-33.0); Mean Corpuscular Volume 84.8 fL (80.0-98.0); NRBC Abs Auto 0.000 X10*3/uL (0.0-0.012); NRBC Pct Auto 0.0 /100WBC (0.0-0.2); Platelet Count 234 X10*3/uL (160-400); Red Blood Count 5.33 X10*6/uL (4.60-5.80); White Blood Count 6.1 X10*3/uL (4.8-10.8)
[2025-03-18 14:23] LABS: Alanine Aminotransferase 35 U/L (0-40); Albumin Level 4.5 g/dL (3.5-5.0); Alkaline Phosphatase 59 U/L (39-117); Anion Gap 10 (12-20); Aspartate Amino Transferase 31 U/L (5-37); Blood Urea Nitrogen 12 mg/dL (9-16); Calcium 9.1 mg/dL (8.4-10.2); Carbon Dioxide 30 mmol/L (22-29); Chloride 104 mmol/L (96-108); Cholesterol 201 mg/dL (<200); Estimated Glomerular Filt Rate > 60; HDL Cholesterol 45 mg/dL (>40); Potassium 3.9 mmol/L (3.3-5.1); Sodium 140 mmol/L (135-145); Total Protein 7.7 g/dL (6.5-8.0); Triglycerides 107 mg/dL (<150)
[2025-03-18 15:23] LABS: Reflex LDLD? No
[2025-03-19 04:00] LABS: Syphilis Screen Nonreactive (Nonreactive)
[2025-03-19 04:15] LABS: HBS Num1 0.47 mIU/mL (0-7.99); HBc Num1 0.13 S/CO (0.00-0.79); HBsAGNum1 0.46 S/CO (0.00-0.99); HIV Num 1 0.13 S/CO (0.00-0.99); Hepatitis A Antibody IgM 0.19 Index (0-0.79); Hepatitis B Surface Antigen Negative (Negative); ~HepC Num1 0.10 S/CO (0.00-0.79); ~Hepatitis A Antibody IgM Nonreactive (Nonreactive); ~Hepatitis B Surface Antibody NONREACTIVE (Nonreactive); ~Hepatitis C Antibody Nonreactive (Nonreactive)
== END 2025-03-18 12:05 | disposition home or self-care (01) ==
LOC: HO.HHCL 12:04
PROVIDERS: PCP Internal Medicine; Visit Provider Internal Medicine
DX: E66.812 Obesity, class 2 (principal); M54.41 Lumbago with sciatica, right side; G89.29 Other chronic pain; M54.42 Lumbago with sciatica, left side; Z11.3 Encounter for screening for infections with a predominantly sexual mode of transmission; Z11.4 Encounter for screening for human immunodeficiency virus [HIV]; Z11.59 Encounter for screening for other viral diseases; Z01.84 Encounter for antibody response examination; Z68.36 Body mass index [BMI] 36.0-36.9, adult
CPT/HCPCS: 36415; 80053; 80061; 84443; 85025; 86704; 86706; 86709; 86780; 86803; 87340; 87389